=== PATIENT | male | born 1960 | race Caucasian/White ===

== ENCOUNTER 2023-10-08 09:19 | Inpatient (IN) | payer BC ==
[~2023-10-08] VITALS: Ht 185.4 cm; Wt 63.5 kg
[2023-10-08 09:25] VITALS: BP_SYST 116; PULSE 91; RESP 18; TEMP 97; O2SAT 96
[2023-10-08 10:23] LABS: BILIRUBIN,URINE NEGATIVE (NEGATIVE); BLOOD, URINE NEGATIVE (NEGATIVE); CLARITY/URINE SL CLOUDY (CLEAR); COLOR,URINE YELLOW (YELLOW); GLUCOSE,URINE NEGATIVE (NEGATIVE); KETONES,URINE NEGATIVE (NEGATIVE); LEUKOCYTE ESTERASE ,URINE NEGATIVE (NEGATIVE); NITRITE, URINE POSITIVE (NEGATIVE); PH,URINE 6.5 (5.0-8.0); PROTEIN URINE NEGATIVE (NEGATIVE); UROBILINOGEN,URINE 0.2 (0.2-1.0)
[2023-10-08 10:47] LABS: BASOPHILS # (AUTO) 0.1 K/uL (0.0-0.2); BASOPHILS % (AUTO) 1.1 % (0.0-2.0); EOSINOPHILS # (AUTO) 0.1 K/uL (0.0-0.4); EOSINOPHILS % (AUTO) 1.8 % (0.0-4.0); HEMATOCRIT 33.4 % (36-54); HEMOGLOBIN 11.2 g/dL (14.0-18.0); LYMPHOCYTES # (AUTO) 1.6 K/uL (1.0-5.5); MEAN CORPUSCULAR HEMOGLOBIN 28 pg (27-31); MEAN CORPUSCULAR HGB CONC 34 % (32-36); MEAN CORPUSCULAR VOLUME 84 fL (79.0-98.0); MONOCYTES # (AUTO) 0.5 K/uL (0.0-1.0); MONOCYTES % (AUTO) 7.7 % (1.7-9.3); NEUTROPHILS # (AUTO) 4.5 K/uL (1.8-7.7); NEUTROPHILS % (AUTO) 66.4 % (40.0-70.0); PLATELET COUNT (AUTO) 533 K/uL (130-430); RED BLOOD CELL COUNT(AUTO) 3.97 MIL/uL (4.2-6.2); RED CELL DISTRIBUTION WIDTH 17.4 % (9.0-15.0); WHITE BLOOD COUNT (AUTO) 6.8 K/uL (4.8-10.8)
[2023-10-08 10:50] LABS: ANION GAP 5 (5-15); CALCIUM 9.5 mg/dL (8.4-11.0); CARBON DIOXIDE 32 mmol/L (23-29); CHLORIDE 100 mmol/L (98-107); CREATININE 0.87 mg/dL (0.55-1.30); GFR AFRICAN AMERICAN 114 mL/min (>90); GFR NON AFRICAN-AMERICAN 95 mL/min (>90); GLUCOSE 83 mg/dL (74-106); POTASSIUM 4.1 mmol/L (3.5-5.1); SODIUM SERUM 137 mmol/L (136-145); UREA NITROGEN, BLOOD 21 mg/dL (8-21)
[2023-10-08 10:53] LABS: INR 1.1 (0.80-1.20); PROTHROMBIN TIME 11.5 SECS (9.5-12.5)
[2023-10-08 10:55] LABS: BACTERIA,URINE MANY /HPF (None Seen); RBC,URINE NONE SEEN /HPF (0-3); WBC,URINE 0-3 /HPF (0-3)
[2023-10-08 10:59] LABS: ALANINE AMINOTRANSFERASE 25 U/L (12-78); ASPARTATE AMINOTRANSFERASE 19 U/L (10-37); BILIRUBIN,DIRECT 0.1 mg/dL (0.0-0.3); TOTAL BILIRUBIN 0.5 mg/dL (0.0-1.0); TOTAL PROTEIN, SERUM 8.1 g/dL (6.4-8.3)
[2023-10-08] MEDS ORDERED: RIVA20TA PO (11:34)
[2023-10-08] MEDS ORDERED: METO25TA6 PO (11:34)
[2023-10-08] MEDS ORDERED: [UNRECOGNIZED DRUG - CODE] GT (11:34)
[2023-10-08] MEDS ORDERED: MIRT-92 PO (11:34)
[2023-10-08] MEDS ORDERED: ALBU2.5V7 HHN (11:34)
[2023-10-08] MEDS ORDERED: FLUT16SP16 NS (11:34)
[2023-10-08] MEDS ORDERED: BUSP5TAB3 PO (11:34)
[2023-10-08] MEDS ORDERED: ASPI-1155 PO (11:34)
[2023-10-08] MEDS ORDERED: ACET-2634 GT (11:34)
[2023-10-08] MEDS ORDERED: AMIO200T68 PO (11:34)
[2023-10-08] MEDS ORDERED: MIDO10TA PO (11:34)
[2023-10-08] MEDS ORDERED: DOCU-144 GT (11:34)
[2023-10-08] MEDS ORDERED: MELA3TAB69 GT (11:34)
[2023-10-08] MEDS ORDERED: FURO40TA5 PO (11:34)
[2023-10-08] MEDS ORDERED: FAMO20TA8 PO (11:34)
[2023-10-08] MEDS ORDERED: LACT10SO7 (11:34)
[2023-10-08] MEDS ORDERED: AMIN30LI2 GT (11:34)
[2023-10-08] MEDS ORDERED: LEVO25TA7 PO (11:34)
[2023-10-08] MEDS ORDERED: ATOR20TA64 PO (11:34)
[2023-10-08] MEDS ORDERED: cefTRIAXone 1 GM VIAL ONE (13:48)
[2023-10-08] MEDS: LORazepam 2 MG/ML VIAL IVP ONE (13:53)
[2023-10-08] MEDS: cefTRIAXone 1 GM in D5W 50 ML IV ONE (13:58)
[2023-10-08] MEDS ORDERED: LORazepam 2 MG/ML VIAL IVP PRN (14:45)
[2023-10-08] MEDS ORDERED: ONDANSETRON HCL 4 MG/2 ML VIAL IVP PRN (14:45)
[2023-10-08] MEDS ORDERED: ACETAMINOPHEN 325 MG TABLET PO PRN ×2 (14:45→15:00)
[2023-10-08 15:00] VITALS: BP_SYST 106; PULSE 93; O2SAT 94
[2023-10-08] MEDS ORDERED: AMIODARONE HCL 200 MG TABLET PO ONE (15:00)
[2023-10-08] MEDS ORDERED: METOPROLOL TARTRATE 25 MG TABLET PO ONE (15:00)
[2023-10-08] MEDS: NACL 0.9% 1,000 ML IV ONE (15:09)
[2023-10-08] MEDS: METOPROLOL TARTRATE 5 MG/5 ML VIAL IVP ONE (15:16)
[2023-10-08] MEDS ORDERED: GASTROGRAFIN 120 ML ONE (15:43)
[2023-10-08] MEDS ORDERED: METOPROLOL TARTRATE 5 MG/5 ML VIAL IVP PRN (15:45)
[2023-10-08 17:27] VITALS: BP_SYST 130; PULSE 118; RESP 16; TEMP 98.1; O2SAT 98
[2023-10-08 17:45] VITALS: BP_SYST 130; PULSE 118; RESP 16; TEMP 98.1; O2SAT 96
[2023-10-08] MEDS: D5/0.45 NS 1,000 ML IV SCH (21:38)
[2023-10-08] MEDS: HEPARIN SODIUM,PORCINE 5,000 UNITS/ML VIAL SUBCUT SCH (21:39)
[2023-10-09] VITALS (7 sets, daily range): BP systolic 86–105; PULSE 79–117; RESP 14–18; TEMP 97–98.4; O2SAT 94–97
[2023-10-09 05:21] LABS: BASOPHILS # (AUTO) 0.1 K/uL (0.0-0.2); BASOPHILS % (AUTO) 0.8 % (0.0-2.0); EOSINOPHILS # (AUTO) 0.1 K/uL (0.0-0.4); EOSINOPHILS % (AUTO) 0.6 % (0.0-4.0); HEMATOCRIT 30.7 % (36-54); HEMOGLOBIN 10.4 g/dL (14.0-18.0); LYMPHOCYTES # (AUTO) 1.3 K/uL (1.0-5.5); LYMPHOCYTES % (AUTO) 14.2 % (20.5-51.5); MEAN CORPUSCULAR HEMOGLOBIN 28 pg (27-31); MEAN CORPUSCULAR HGB CONC 34 % (32-36); MEAN CORPUSCULAR VOLUME 84 fL (79.0-98.0); MONOCYTES # (AUTO) 0.6 K/uL (0.0-1.0); MONOCYTES % (AUTO) 6.7 % (1.7-9.3); NEUTROPHILS # (AUTO) 7.1 K/uL (1.8-7.7); NEUTROPHILS % (AUTO) 77.7 % (40.0-70.0); PLATELET COUNT (AUTO) 509 K/uL (130-430); RED BLOOD CELL COUNT(AUTO) 3.67 MIL/uL (4.2-6.2); RED CELL DISTRIBUTION WIDTH 17.5 % (9.0-15.0); WHITE BLOOD COUNT (AUTO) 9.2 K/uL (4.8-10.8)
[2023-10-09 05:27] LABS: ERYTHROCYTE SEDIMENTATION RATE 76 MM/HR (0-15)
[2023-10-09] MEDS: VANCOMYCIN HCL 1,000 MG in NS 250 ML IV SCH (06:14)
[2023-10-09] MEDS: VANCOMYCIN HCL 1,000 MG in NS 250 ML IV ONE (06:14)
[2023-10-09 06:21] LABS: CALCIUM 8.9 mg/dL (8.4-11.0); CREATININE 0.82 mg/dL (0.55-1.30); POTASSIUM 3.8 mmol/L (3.5-5.1); THYROID STIMULATING HORMONE 7.24 uIu/mL (0.34-4.82)
[2023-10-09] MEDS: cefTRIAXone 1 GM in D5W 50 ML IV SCH (08:49)
[2023-10-09] MEDS: MIDAZOLAM HCL 5 MG/5 ML VIAL ONE (09:19)
[2023-10-09] MEDS: MEPERIDINE 100 MG INJ. 100 MG/ML VIAL ONE (09:19)
[2023-10-09] MEDS ORDERED: *LOVENOX 1MG/KG Q12H/PHARMACY XX PRN (10:30)
[2023-10-09] MEDS: NS 500 ML IV ONE (10:39)
[2023-10-09] MEDS: MIDODRINE HCL 5 MG TABLET (PROAMATINE) PO ONE (10:50)
[2023-10-09] MEDS ORDERED: ENOXAPARIN SODIUM 60 MG/0.6 ML SYRINGE SUBCUT ONE ×2 (11:00→14:00)
[2023-10-09] MEDS: HYDROcodone/ACETAMIN 5-325 MG TAB (NORCO/ VICODIN) GT PRN (11:48)
[2023-10-09] MEDS: busPIRone HCL 5 MG TABLET GT SCH (15:21)
[2023-10-09] MEDS: MIDODRINE HCL 5 MG TABLET (PROAMATINE) PO SCH (15:23)
[2023-10-09] MEDS: ATORVASTATIN 20 MG TABLET JT SCH (20:44)
[2023-10-09] MEDS: ENOXAPARIN SODIUM 60 MG/0.6 ML SYRINGE SUBCUT SCH (20:46)
[2023-10-09] MEDS: DOCUSATE SODIUM 100 MG/10 ML UDC GT SCH (20:46)
[2023-10-09] MEDS: MIRTAZAPINE 15 MG TABLET GT SCH (20:47)
[2023-10-10] VITALS (7 sets, daily range): BP systolic 102–130; PULSE 64–96; RESP 16–18; TEMP 97–98.4; O2SAT 96–100
[2023-10-10] MEDS: LEVOTHYROXINE SODIUM 0.025 MG TABLET GT SCH (06:22)
[2023-10-10 06:29] LABS: BASOPHILS # (AUTO) 0.1 K/uL (0.0-0.2); BASOPHILS % (AUTO) 0.9 % (0.0-2.0); EOSINOPHILS # (AUTO) 0.1 K/uL (0.0-0.4); EOSINOPHILS % (AUTO) 1.3 % (0.0-4.0); HEMATOCRIT 29.5 % (36-54); HEMOGLOBIN 9.9 g/dL (14.0-18.0); LYMPHOCYTES # (AUTO) 0.8 K/uL (1.0-5.5); LYMPHOCYTES % (AUTO) 9.4 % (20.5-51.5); MEAN CORPUSCULAR HEMOGLOBIN 28 pg (27-31); MEAN CORPUSCULAR HGB CONC 33 % (32-36); MEAN CORPUSCULAR VOLUME 84 fL (79.0-98.0); MONOCYTES # (AUTO) 0.7 K/uL (0.0-1.0); NEUTROPHILS % (AUTO) 80.4 % (40.0-70.0); PLATELET COUNT (AUTO) 368 K/uL (130-430); RED BLOOD CELL COUNT(AUTO) 3.49 MIL/uL (4.2-6.2); RED CELL DISTRIBUTION WIDTH 17.5 % (9.0-15.0); WHITE BLOOD COUNT (AUTO) 8.7 K/uL (4.8-10.8)
[2023-10-10 06:40] LABS: CALCIUM 8.7 mg/dL (8.4-11.0); CREATININE 0.66 mg/dL (0.55-1.30); POTASSIUM 3.4 mmol/L (3.5-5.1)
[2023-10-10 07:00] LABS: ALBUMIN 2.5 g/dL (3.4-4.8); TOTAL BILIRUBIN 0.5 mg/dL (0.0-1.0)
[2023-10-10] MEDS: ASPIRIN 81 MG TAB.CHEW PO SCH (08:11)
[2023-10-10] MEDS: AMIODARONE HCL 200 MG TABLET PO SCH (08:12)
[2023-10-10] MEDS: FAMOTIDINE 20 MG TABLET GT SCH (08:12)
[2023-10-10] MEDS: POTASSIUM CHLORIDE 20 MEQ/PKT PACKET PO ONE (08:30)
[2023-10-10] MEDS: COMMUNICATION ORDER XX ONE (08:35)
[2023-10-10] MEDS: POTASSIUM CHLORIDE 20 MEQ TABLET.ER PO ONE (08:35)
[2023-10-10] MEDS ORDERED: ATORVASTATIN 20 MG TABLET PO SCH (09:00)
[2023-10-10] MEDS: ACETAMINOPHEN 325 MG TABLET GT PRN (10:13)
[2023-10-10] MEDS ORDERED: ALBUTEROL SULFATE 0.083% 2.5 MG/3 ML VIAL.NEB INH PRN (15:30)
[2023-10-10] MEDS ORDERED: ALBUTEROL SULFATE 0.083% 2.5 MG/3 ML VIAL.NEB INH SCH (19:00)
[2023-10-10] MEDS: BUDESONIDE 0.5 MG/2 ML AMPUL.NEB INH SCH (20:06)
[2023-10-10] MEDS ORDERED: BUDESONIDE/FORMOTEROL 80-4.5 mCg, 6.9 GM INHALER INH SCH (21:00)
[2023-10-11] VITALS (10 sets, daily range): BP systolic 104–134; PULSE 62–91; RESP 16–18; TEMP 97.5–99.2; O2SAT 93–99
[2023-10-11 05:35] LABS: BASOPHILS # (AUTO) 0.1 K/uL (0.0-0.2); BASOPHILS % (AUTO) 0.8 % (0.0-2.0); EOSINOPHILS # (AUTO) 0.1 K/uL (0.0-0.4); EOSINOPHILS % (AUTO) 0.9 % (0.0-4.0); HEMATOCRIT 30.3 % (36-54); HEMOGLOBIN 9.8 g/dL (14.0-18.0); LYMPHOCYTES # (AUTO) 0.9 K/uL (1.0-5.5); LYMPHOCYTES % (AUTO) 7.9 % (20.5-51.5); MEAN CORPUSCULAR HEMOGLOBIN 28 pg (27-31); MEAN CORPUSCULAR HGB CONC 32 % (32-36); MEAN CORPUSCULAR VOLUME 85 fL (79.0-98.0); MONOCYTES # (AUTO) 0.6 K/uL (0.0-1.0); MONOCYTES % (AUTO) 5.4 % (1.7-9.3); NEUTROPHILS # (AUTO) 10.1 K/uL (1.8-7.7); PLATELET COUNT (AUTO) 433 K/uL (130-430); RED BLOOD CELL COUNT(AUTO) 3.56 MIL/uL (4.2-6.2); RED CELL DISTRIBUTION WIDTH 17.8 % (9.0-15.0); WHITE BLOOD COUNT (AUTO) 11.8 K/uL (4.8-10.8)
[2023-10-11 06:02] LABS: CALCIUM 8.9 mg/dL (8.4-11.0); CREATININE 0.69 mg/dL (0.55-1.30); POTASSIUM 3.9 mmol/L (3.5-5.1)
[2023-10-11] MEDS: TAMSULOSIN HCL 0.4 MG CAP GT SCH (08:44)
[2023-10-11] MEDS: COMMUNICATION ORDER XX ONE (11:17)
[2023-10-11] MEDS: MIDODRINE HCL 5 MG TABLET (PROAMATINE) GT SCH (14:37)
[2023-10-11] MEDS: ERTAPENEM SODIUM 1 GM in NS 50 ML IV SCH (14:37)
[2023-10-11] MEDS: RIVAROXABAN 10 MG TABLET GT SCH (17:36)
[2023-10-12] VITALS (8 sets, daily range): BP systolic 105–126; PULSE 75–92; RESP 15–18; TEMP 97.1–98.1; O2SAT 94–100
[2023-10-12 07:11] LABS: BASOPHILS # (AUTO) 0.1 K/uL (0.0-0.2); EOSINOPHILS # (AUTO) 0.1 K/uL (0.0-0.4); EOSINOPHILS % (AUTO) 1.5 % (0.0-4.0); HEMATOCRIT 28.7 % (36-54); HEMOGLOBIN 9.4 g/dL (14.0-18.0); LYMPHOCYTES # (AUTO) 1.1 K/uL (1.0-5.5); LYMPHOCYTES % (AUTO) 15.3 % (20.5-51.5); MEAN CORPUSCULAR HEMOGLOBIN 28 pg (27-31); MEAN CORPUSCULAR HGB CONC 33 % (32-36); MEAN CORPUSCULAR VOLUME 85 fL (79.0-98.0); MONOCYTES # (AUTO) 0.6 K/uL (0.0-1.0); MONOCYTES % (AUTO) 7.7 % (1.7-9.3); NEUTROPHILS # (AUTO) 5.4 K/uL (1.8-7.7); NEUTROPHILS % (AUTO) 74.5 % (40.0-70.0); PLATELET COUNT (AUTO) 356 K/uL (130-430); RED BLOOD CELL COUNT(AUTO) 3.36 MIL/uL (4.2-6.2); WHITE BLOOD COUNT (AUTO) 7.3 K/uL (4.8-10.8)
[2023-10-12 07:26] LABS: CALCIUM 8.6 mg/dL (8.4-11.0); CREATININE 0.64 mg/dL (0.55-1.30); POTASSIUM 3.7 mmol/L (3.5-5.1)
[2023-10-12] MEDS: ASPIRIN 81 MG TAB.CHEW GT SCH (09:31)
[2023-10-12] MEDS: AMIODARONE HCL 200 MG TABLET GT SCH (09:32)
[2023-10-13 07:40] VITALS: O2SAT 100
[2023-10-13 08:12] VITALS: BP_SYST 110; PULSE 86; RESP 18; TEMP 98.1; O2SAT 98
[2023-10-13 10:48] VITALS: O2SAT 98
[2023-10-13 11:32] VITALS: BP_SYST 114; PULSE 87; RESP 16; TEMP 98.4; O2SAT 100
[2023-10-13] MEDS ORDERED: ERTA1VIA3 INJ (14:54)
[2023-10-13] MEDS ORDERED: VANC1PLA9 IV (14:54)
[2023-10-13 16:22] VITALS: BP_SYST 119; PULSE 83; RESP 17; TEMP 98.1; O2SAT 99
[2023-10-13 20:00] VITALS: BP_SYST 108; PULSE 68; RESP 18; TEMP 98; O2SAT 98
[2023-10-13] MEDS: DOXYCYCLINE HYCLATE 100 MG CAPSULE PO SCH (21:33)
[2023-10-14] VITALS (8 sets, daily range): BP systolic 112–124; PULSE 62–85; RESP 16–20; TEMP 96.4–98.2; O2SAT 96–99
[2023-10-14 05:29] LABS: BASOPHILS # (AUTO) 0.1 K/uL (0.0-0.2); BASOPHILS % (AUTO) 1.3 % (0.0-2.0); EOSINOPHILS # (AUTO) 0.1 K/uL (0.0-0.4); EOSINOPHILS % (AUTO) 2.8 % (0.0-4.0); HEMATOCRIT 27.4 % (36-54); HEMOGLOBIN 9.1 g/dL (14.0-18.0); LYMPHOCYTES # (AUTO) 1.1 K/uL (1.0-5.5); LYMPHOCYTES % (AUTO) 23.5 % (20.5-51.5); MEAN CORPUSCULAR HEMOGLOBIN 28 pg (27-31); MEAN CORPUSCULAR HGB CONC 33 % (32-36); MEAN CORPUSCULAR VOLUME 85 fL (79.0-98.0); MONOCYTES # (AUTO) 0.4 K/uL (0.0-1.0); MONOCYTES % (AUTO) 7.9 % (1.7-9.3); NEUTROPHILS % (AUTO) 64.5 % (40.0-70.0); PLATELET COUNT (AUTO) 326 K/uL (130-430); RED BLOOD CELL COUNT(AUTO) 3.23 MIL/uL (4.2-6.2); RED CELL DISTRIBUTION WIDTH 17.6 % (9.0-15.0); WHITE BLOOD COUNT (AUTO) 4.7 K/uL (4.8-10.8)
[2023-10-14 06:01] LABS: ALBUMIN 2.1 g/dL (3.4-4.8); CALCIUM 8.1 mg/dL (8.4-11.0); CREATININE 0.58 mg/dL (0.55-1.30); POTASSIUM 3.7 mmol/L (3.5-5.1); TOTAL BILIRUBIN 0.3 mg/dL (0.0-1.0); TOTAL PROTEIN, SERUM 5.9 g/dL (6.4-8.3); VANCOMYCIN,TROUGH 12.1 ug/mL (10.0-20.0)
[2023-10-14] MEDS: IPRATROPIUM BROM 0.5 MG/2.5 ML VIAL.NEB (ATROVENT) INH PRN (07:19)
[2023-10-14] MEDS: ALBUTEROL SULFATE 0.083% 2.5 MG/3 ML VIAL.NEB INH PRN (07:19)
[2023-10-14] MEDS ORDERED: DOXY100C5 PO (09:47)
[2023-10-15] VITALS (7 sets, daily range): BP systolic 98–115; PULSE 81–93; RESP 16–18; TEMP 97.6–98.4; O2SAT 97–100
[2023-10-16] VITALS (9 sets, daily range): BP systolic 100–117; PULSE 58–81; RESP 16–20; TEMP 96.1–98.8; O2SAT 94–100
[2023-10-17 07:07] VITALS: O2SAT 96
[2023-10-17 07:51] VITALS: BP_SYST 115; PULSE 96; RESP 16; TEMP 97.3; O2SAT 100
[2023-10-17 09:22] VITALS: BP_SYST 115; PULSE 81; O2SAT 96
[2023-10-17 12:01] VITALS: BP_SYST 114; PULSE 87; RESP 17; TEMP 97.4; O2SAT 99
[2023-10-17 16:13] VITALS: BP_SYST 117; PULSE 85; RESP 17; TEMP 97.8; O2SAT 96
[2023-10-17 20:00] VITALS: BP_SYST 119; PULSE 80; RESP 18; TEMP 97.3; O2SAT 99
[2023-10-18 00:15] VITALS: BP_SYST 122; PULSE 82; RESP 17; TEMP 96.6; O2SAT 99
[2023-10-18 07:45] VITALS: O2SAT 97
[2023-10-18 08:56] VITALS: BP_SYST 99; PULSE 99; RESP 18; TEMP 97.1; O2SAT 98
[2023-10-18 10:43] VITALS: BP_SYST 99; PULSE 99; RESP 18; TEMP 97.1; O2SAT 98
[2023-10-18 11:40] VITALS: BP_SYST 112; PULSE 78; RESP 16; TEMP 97; O2SAT 98
== END 2023-10-18 17:45 | disposition hospice, home (50) | DRG 383 ==
LOC: SED 09:19 → STU 14:35 → SMU 10-11 13:41
PROVIDERS: ADMIT Internal Medicine; ATTEND Internal Medicine
PROC: 0DH63UZ Insertion of Feeding Device into Stomach, Percutaneous Approach (ICD-10-PCS; 2023-10-09)
PROC: 0DP68UZ Removal of Feeding Device from Stomach, Via Natural or Artificial Opening Endoscopic (ICD-10-PCS; principal; 2023-10-09 09:15)
DX: L03.311 Cellulitis of abdominal wall (principal); I21.4 Non-ST elevation (NSTEMI) myocardial infarction; G93.49 Other encephalopathy; I11.0 Hypertensive heart disease with heart failure; I69.351 Hemiplegia and hemiparesis following cerebral infarction affecting right dominant side; K94.22 Gastrostomy infection; J18.9 Pneumonia, unspecified organism; F01.50 Vascular dementia, unspecified severity, without behavioral disturbance, psychotic disturbance, mood disturbance, and anxiety; I50.22 Chronic systolic (congestive) heart failure; J44.0 Chronic obstructive pulmonary disease with (acute) lower respiratory infection; Z20.822 Contact with and (suspected) exposure to COVID-19; I48.0 Paroxysmal atrial fibrillation; K94.23 Gastrostomy malfunction; K80.20 Calculus of gallbladder without cholecystitis without obstruction; I71.40 Abdominal aortic aneurysm, without rupture, unspecified; E03.9 Hypothyroidism, unspecified; B96.20 Unspecified Escherichia coli [E. coli] as the cause of diseases classified elsewhere; N39.0 Urinary tract infection, site not specified; Z79.01 Long term (current) use of anticoagulants; Z86.73 Personal history of transient ischemic attack (TIA), and cerebral infarction without residual deficits; Z79.899 Other long term (current) drug therapy; Z88.5 Allergy status to narcotic agent
CPT/HCPCS: 36415; 71045; 74018; 76705; 80048; 80053; 80076; 80202; 81000; 81001; 81015; 82533; 83605; 83880; 84443; 84484; 85025; 85610; 85651; 85730; 87040; 87070; 87075; 87081; 87086; 87186; 92610-GN; 93005; 93306; 94640; 94760; 96365; 96375; 97110-GP; 97112-GP; 97530-GP; 99285; G0378; J0696; J1335; J1644; J1650; J2060; J2175; J2250; J3370; J3490; J7050; J7060; J7626; Q9963; Q9967